=== PATIENT | female | born 1950 | race Caucasian/White ===

== ENCOUNTER 2023-06-20 17:09 | Emergency (ER) | payer MEDICARE, SELFPAY ==
[2023-06-20 17:59] VITALS: BP 185/77; PULSE 65; RESP 18; TEMP 36.6; O2SAT 95; BMI 43.9
--- NOTE | 2023-06-20 18:40 | ED.GENADULT ---
HPI - General Adult General Chief complaint: Abdominal Pain Stated complaint: Extreme abdominal pain Time Seen by Provider: 06/20/23 18:36 History of Present Illness HPI narrative: Patient reports history of on and off again diarrhea and then constipation. She notes new bulge that come from her belly button as well . Today pain seems worse than it has been. 73-year-old woman presenting to the emergency department I went to assess this patient and she says she thinks she knows what is going on now and feeling much better and she does not feel like she needs formal visit from the physician. She will treat this [id number] returning if needed Related Data Home Medications Medication Instructions Recorded Confirmed amlodipine 10 mg tablet 10 mg PO DAILY 06/20/23 06/20/23 atorvastatin 40 mg tablet 40 mg PO DAILY 06/20/23 06/20/23 budesonide-formoterol HFA 160 2 puff inhalation BID 06/20/23 06/20/23 mcg-4.5 mcg/actuation aerosol inhaler duloxetine 30 mg capsule,delayed 30 mg PO DAILY 06/20/23 06/20/23 release ferrous sulfate 325 mg (65 mg 325 mg PO DAILY 06/20/23 06/20/23 iron) tablet fluticasone fur. 100 mcg-umeclid 1 ea inhalation DAILY 06/20/23 06/20/23 62.5 mcg-vilant 25 mcg inhalat.powder (Trelegy Ellipta) gabapentin 300 mg capsule 600 mg PO QPM 06/20/23 06/20/23 metoprolol tartrate 100 mg tablet 100 mg PO BID 06/20/23 06/20/23 pramipexole 0.75 mg tablet 0.75 mg PO QPM 06/20/23 06/20/23 prednisone 20 mg tablet mg 06/20/23 tizanidine 2 mg tablet 2 mg PO QPM PRN muscle spasm 06/20/23 06/20/23 Allergies Allergy/AdvReac Type Severity Reaction Status Date / Time lisinopril Allergy Intermediate Rash Verified 06/20/23 17:58 losartan [From Cozaar] Allergy Intermediate Unknown Verified 06/20/23 17:58 Penicillins AdvReac Intermediate Rash Verified 06/20/23 17:58 Exam Const: Vital Signs, click to edit/add: Vital Signs - 24 hr 06/20/23 17:59 Temperature 98 F Pulse Rate [Pulse Oximeter] 65 Respiratory Rate 18 Blood Pressure [Ri ght Upper Arm] 185/77 H Pulse Oximetry 95 Oxygen Delivery Me thod Room Air Course Vital Signs Vital signs: Initial Vital Signs Temperature 98 F 06/20/23 17:59 Temperature Source Temporal Artery Scan 06/20/23 17:59 Pulse Rate 65 06/20/23 17:59 Respiratory Rate 18 06/20/23 17:59 Blood Pressure 185/77 H 06/20/23 17:59 Blood Pressure Mean 113 H 06/20/23 17:59 Pulse Oximetry 95 06/20/23 17:59 Oxygen Delivery Method Room Air 06/20/23 17:59 Vital Signs Temperature 98 F 06/20/23 17:59 Pulse Rate 65 06/20/23 17:59 Respiratory Rate 18 06/20/23 17:59 Blood Pressure 185/77 H 06/20/23 17:59 Pulse Oximetry 95 06/20/23 17:59 Oxygen Delivery Method Room Air 06/20/23 17:59 Temperature 98 F 06/20/23 17:59 Pulse Rate 65 06/20/23 17:59 Respiratory Rate 18 06/20/23 17:59 Blood Pressure 185/77 H 06/20/23 17:59 Pulse Oximetry 95 06/20/23 17:59 Oxygen Delivery Method Room Air 06/20/23 17:59 Discharge Plan Discharge Patient Disposition: Left Without Being Seen
== END 2023-06-20 19:31 | disposition left against medical advice (07) ==
LOC: ED 19:26
PROVIDERS: Emergency Provider Family Medicine
DX: Z53.21 Procedure and treatment not carried out due to patient leaving prior to being seen by health care provider (principal)
CPT/HCPCS: 99281

== ENCOUNTER 2023-07-11 12:49 | Emergency (ER) | payer MEDICARE, SELFPAY ==
[2023-07-11 13:06] VITALS: BP 185/81; PULSE 80; RESP 18; TEMP 36.8; O2SAT 93; BMI 45.7
--- NOTE | 2023-07-11 13:09 | ED_ITS ---
HPI - Fall General Time Seen by Provider: 13:09 Date Seen: 07/11/23 Chief Complaint: Fall/Minor Trauma Stated Complaint: R shoulder pain Time Seen by Provider: 07/11/23 12:56 Source: patient and RN notes reviewed Mode of arrival: ambulatory Limitations: no limitations History of Present Illness HPI Narrative: This patient is a 73-year-old female coming in with right shoulder pain, some mild right ankle pain. She stated that this happened last night. She was going out to get her dog in, the rope was caught on some ice/no. She got her dog on hooked, the dog ran and she got hold. She fell down onto the cement. Her right ankle is just mildly sore, she still ambulatory on it. Her right shoulder is what hurts. There is no numbness tingling of this extremity. She did take some Tylenol, has not taken any today. MD complaint: fall Related Data Home Medications Medication Instructions Recorded Confirmed amlodipine 10 mg tablet 10 mg PO DAILY 06/20/23 06/20/23 atorvastatin 40 mg tablet 40 mg PO DAILY 06/20/23 06/20/23 budesonide-formoterol HFA 160 2 puff inhalation BID 06/20/23 06/20/23 mcg-4.5 mcg/actuation aerosol inhaler duloxetine 30 mg capsule,delayed 30 mg PO DAILY 06/20/23 06/20/23 release ferrous sulfate 325 mg (65 mg 325 mg PO DAILY 06/20/23 06/20/23 iron) tablet fluticasone fur. 100 mcg-umeclid 1 ea inhalation DAILY 06/20/23 06/20/23 62.5 mcg-vilant 25 mcg inhalat.powder (Trelegy Ellipta) gabapentin 300 mg capsule 600 mg PO QPM 06/20/23 06/20/23 metoprolol tartrate 100 mg tablet 100 mg PO BID 06/20/23 06/20/23 pramipexole 0.75 mg tablet 0.75 mg PO QPM 06/20/23 06/20/23 prednisone 20 mg tablet mg 06/20/23 tizanidine 2 mg tablet 2 mg PO QPM PRN muscle spasm 06/20/23 06/20/23 Previous Rx's Medication Instructions Recorded tramadol 50 mg tablet 50 mg PO Q8H PRN pain #10 tabs 07/11/23 Allergies Allergy/AdvReac Type Severity Reaction Status Date / Time lisinopril Allergy Intermediate Rash Verified 06/20/23 17:58 losartan [From Cozaar] Allergy Intermediate Unknown Verified 06/20/23 17:58 Penicillins AdvReac Intermediate Rash Verified 06/20/23 17:58 Review of Systems Narrative: As per HPI. Exam Const: Vital Signs, click to edit/add: Vital Signs - 24 hr 07/11/23 13:06 Temperature 98.2 F Pulse Rate [Pulse Oximeter] 80 Respiratory Rate 18 Blood Pressure [Ri ght Upper Arm] 185/81 H Pulse Oximetry 93 Oxygen Delivery Me thod Room Air Kelley is a 73-year-old female that is alert, interactive, no apparent distress. She is hanging onto her right arm with the elbow at 90?, arm held across her body. She is nontender over the clavicle, AC joint. She starts to have pain along the proximal humerus, does feel like the humeral head is still intact. Movement at the elbow causes pain in the shoulder for her. There is no swelling about the elbow, does not tender in the forearm wrist or hand. Neurovascular is intact in this extremity. She did ambulate in but does have some mild edema laterally along the ankle, tender over the distal malleolus and inferior to the malleolus on that side. Neurovascular is intact. Anterior mortise does not reveal any joint line tenderness, no swelling about the ankle except laterally. Documenting provider has reviewed patient's vital signs: yes Course Course ED Course: Reviewed with patient that we will be getting x-rays of her right shoulder and right ankle to rule out underlying fracture. She is in agreement with this plan. Reevaluation(s) Time of Reevaluation #1: 14:08 Reevaluation #1: Reviewed with patient that her shoulder films and ankle films are not showing any fracture. We are going to have her just go back for full humerus x-ray of this arm, want to ensure that we are not missing anything in her humerus. Her pain really does seem to be emanating from the shoulder but none the less, would feel much better if I had full visualization of the humerus. We discussed if this subsequent x-ray is negative, would suspect that she might actually have a rotator cuff injury. We discussed that would mean follow up with Orthopedics. Time of Reevaluation #2: 14:55 Reevaluation #2: Reviewed with patient that there is certainly no evidence of any fracture on the expanded humerus views. My concern with her level of pain is that this potentially could mean a rotator cuff injury. We are going to get her a sling for comfort. I have reviewed gentle pendulum exercises for range of motion to prevent frozen shoulder. Will have her take Tylenol baseline for pain, give her prescription for tramadol for more severe pain. Vital Signs Vital signs: Initial Vital Signs Temperature 98.2 F 07/11/23 13:06 Temperature Source Temporal Artery Scan 07/11/23 13:06 Pulse Rate 80 07/11/23 13:06 Pulse Rhythm Regular 07/11/23 13:06 Respiratory Rate 18 07/11/23 13:06 Blood Pressure 185/81 H 07/11/23 13:06 Blood Pressure Mean 115 H 07/11/23 13:06 Blood Pressure Position Sitting 07/11/23 13:06 Pulse Oximetry 93 07/11/23 13:06 Oxygen Delivery Method Room Air 07/11/23 13:06 Vital Signs Temperature 98.2 F 07/11/23 13:06 Pulse Rate 80 07/11/23 13:06 Respiratory Rate 18 07/11/23 13:06 Blood Pressure 185/81 H 07/11/23 13:06 Pulse Oximetry 93 07/11/23 13:06 Oxygen Delivery Method Room Air 07/11/23 13:06 Temperature 98.2 F 07/11/23 13:06 Pulse Rate 80 07/11/23 13:06 Respiratory Rate 18 07/11/23 13:06 Blood Pressure 185/81 H 07/11/23 13:06 Pulse Oximetry 93 07/11/23 13:06 Oxygen Delivery Method Room Air 07/11/23 13:06 MDM - Fall Imaging Data XR right shoulder: Attestation: I have reviewed the pertinent imaging results. My impression: I see no evidence of any acute fracture on this shoulder x-ray. There is no dislocation on my preliminary review of this either. Radiologist's impression: Patient: LEVI PRICE Facility:?[facility] Patient ID:?[id number] Site Patient ID:?[id number]. Site :?[id number] Study:?XRay Shoulder Right 3V-07/11/2023 1:58:35 PM Ordering Physician:?Oscaromel-Foster Yulissa Final Report: Indication: Trauma. Technique: Right shoulder, 3 views. Comparison: None. Findings/Impression: Bones: Alignment is normal. No displaced fractures or bone lesions. Chronic changes about the greater tuberosity. Joint spaces: Moderate acromioclavicular and glenohumeral degenerative changes. Soft tissues: Unremarkable. Dictated by Yousuf Tai MD @ 07/11/2023 2:01:58 PM (Electronic Signature) XR right ankle: Attestation: I have reviewed the pertinent imaging results. My impression: I see no evidence of any acute fracture a my preliminary review. Radiologist's impression: Patient: [facility] Facility:?[facility] Patient ID:?[id number] Site Patient ID:?[id number]. Site :?1950 Study:?XRay Extremity Right ANKLE 3V-07/11/2023 1:58:55 PM Ordering Physician:Kuldip Duenas Final Report: Indication: Trauma. Technique: Right ankle, 3 views. Comparison: None. Findings/Impression: Bones: Alignment is normal. No displaced fractures or bone lesions. Joint spaces: Degenerative changes. Soft tissues: Unremarkable. Dictated by Yousuf Tai MD @ 07/11/2023 2:03:49 PM (Electronic Signature) XR right humerus: Attestation: I have reviewed the pertinent imaging results. My impression: I see no humerus fracture on my preliminary review. Radiologist's impression: Patient: [facility] Facility:?[facility] Patient ID:?[id number] Site Patient ID:?[id number]. Site :?[id number] Study:?XRay Extremity Right HUMERUS 2V-07/11/2023 2:29:48 PM Ordering Physician:Kuldip Duenas Final Report: INDICATION: Injury COMPARISON: None. TECHNIQUE: Two views right humerus. FINDINGS: BONES: No fracture. Normal mineralization. No focal bone lesion. JOINT: Grossly normal shoulder and elbow joint alignment. Joint spaces: Normal. Soft Tissues: Normal. No foreign body. IMPRESSION: Normal right humerus radiographs. Critical Care Time Critical Care Time Critical Care Time: No Discharge Plan Discharge Clinical Impression: Acute pain of right shoulder Ankle sprain Qualifiers: Encounter type: initial encounter Involved ligament of ankle: unspecified ligament Laterality: right Qualified Code(s): S93.401A - Sprain of unspecified ligament of right ankle, initial encounter Fall Qualifiers: Encounter type: initial encounter Qualified Code(s): W19.XXXA - Unspecified fall, initial encounter Patient Disposition: Home, Self-Care Condition: Stable Instructions: Ankle Sprain (ED), Shoulder Pain (ED) Additional Instructions: Tylenol 1000 mg 3 times a day baseline for pain. Can supplement with tramadol per prescription as needed for more severe pain. This is considered are narcotic, do not recommend driving or operating machinery while using this. Use ice to the shoulder area. Can ambulate on the ankle sprain as tolerated, use Eusebio wrap and ice until swelling is resolved. Need to contact the orthopedic office for follow-up, phone number is [phone], or see if your primary has the capacity to see you before the orthopedist. Use the sling as needed for comfort, remember to do the gentle pendulum exercises to help prevent frozen shoulder. Prescriptions: New tramadol 50 mg tablet 50 mg PO Q8H PRN (Reason: pain) Qty: 10 0RF No Action atorvastatin 40 mg tablet 40 mg PO DAILY tizanidine 2 mg tablet 2 mg PO QPM PRN (Reason: muscle spasm) metoprolol tartrate 100 mg tablet 100 mg PO BID prednisone 20 mg tablet Patient Comments: PLEASE SEE ATTACHED FOR DETAILED DIRECTIONS amlodipine 10 mg tablet 10 mg PO DAILY ferrous sulfate 325 mg (65 mg iron) tablet 325 mg PO DAILY gabapentin 300 mg capsule 600 mg PO QPM duloxetine 30 mg capsule,delayed release(DR/EC) 30 mg PO DAILY budesonide-formoterol 160-4.5 mcg/actuation HFA aerosol inhaler 2 puff INHALATION BID pramipexole 0.75 mg tablet 0.75 mg PO QPM Trelegy Ellipta 100-62.5-25 mcg blister with device 1 ea INHALATION DAILY Follow Up/Referrals: Provider,Not a Local [Referring] - Stand [facility]one [facility] Instructions
--- NOTE | 2023-07-11 13:21 | CRLHL7_ITS ---
For Patients: As a result of the Cures Act, medical imaging exams and procedure reports are released immediately into your electronic medical record. You may view this report before your referring provider. If you have questions, please contact your health care provider. Indication: Trauma. Technique: Right ankle, 3 views. Comparison: None. Findings/Impression: Bones: Alignment is normal. No displaced fractures or bone lesions. Joint spaces: Degenerative changes. Soft tissues: Unremarkable. Dictated by Yousuf Tai MD @ 07/11/2023 2:03:49 PM (Electronically Signed)
--- NOTE | 2023-07-11 13:21 | CRLHL7_ITS ---
For Patients: As a result of the Cures Act, medical imaging exams and procedure reports are released immediately into your electronic medical record. You may view this report before your referring provider. If you have questions, please contact your health care provider. Indication: Trauma. Technique: Right shoulder, 3 views. Comparison: None. Findings/Impression: Bones: Alignment is normal. No displaced fractures or bone lesions. Chronic changes about the greater tuberosity. Joint spaces: Moderate acromioclavicular and glenohumeral degenerative changes. Soft tissues: Unremarkable. Dictated by Yousuf Tai MD @ 07/11/2023 2:01:58 PM (Electronically Signed)
--- NOTE | 2023-07-11 13:57 | CRLHL7_ITS ---
For Patients: As a result of the Cures Act, medical imaging exams and procedure reports are released immediately into your electronic medical record. You may view this report before your referring provider. If you have questions, please contact your health care provider. INDICATION: Injury COMPARISON: None. TECHNIQUE: Two views right humerus. FINDINGS: BONES: No fracture. Normal mineralization. No focal bone lesion. JOINT: Grossly normal shoulder and elbow joint alignment. Joint spaces: Normal. Soft Tissues: Normal. No foreign body. IMPRESSION: Normal right humerus radiographs. Dictated by Alanna Campbell MD @ 07/11/2023 2:44:08 PM (Electronically Signed)
[2023-07-11] MEDS: ACETAMINOPHEN 500 MG TABLET 1000 MG PO (15:15)
== END 2023-07-11 15:25 | disposition home or self-care (01) ==
PROVIDERS: Emergency Provider Family Medicine; PCP Family Medicine
DX: M25.511 Pain in right shoulder (principal); S93.401A Sprain of unspecified ligament of right ankle, initial encounter; W19.XXXA Unspecified fall, initial encounter
CPT/HCPCS: 73030; 73060; 73610; 99283; A9270